=== PATIENT | male | born 1950 | race Caucasian/White ===

== ENCOUNTER 2017-02-03 15:58 | Emergency (ER) | payer OTHER ==
[2017-02-03 17:29] VITALS: BP 144/75
--- NOTE | 2017-02-03 18:04 | ED ---
Adult Trauma - HPI Summary HPI Summary: 66 yr old male with the complaint of right chest wall pain. The patient states he has pain 5/10, worse with movement. He fell getting out of the shower on wet floor and landed on the right side of his chest. He denies other injuries. Does not feel SOB. - History of Current Complaint Chief Complaint: UCChestPain Stated Complaint: S/P FALL- RT SIDE RIB AREA PAIN Time Seen by Provider: 02/03/17 17:38 - Allergy/Home Medications Allergies/Adverse Reactions: Allergies Allergy/AdvReac Type Severity Reaction Status Date / Time Carbamazepine [From Tegretol] Allergy Intermediate Rash Verified 02/03/17 17:29 Sulfa Drugs Allergy Intermediate Rash Verified 02/03/17 17:29 Home Medications: Home Medications Cephalexin CAP* [Keflex CAP*] 500 mg PO DAILY 02/03/17 [History Confirmed ] Naproxen Sodium [Naproxen Sodium 220 mg] 220 mg PO ONCE PRN 02/03/17 [History Confirmed 02/03/17] PMH/Surg Hx/FS Hx/Imm Hx Previously Healthy: Yes Cardiovascular History: Reports: Hx Hypertension - Cancer History Cancer Type, Location and Year: prostate ca 2005 - Surgical History Surgery Procedure, Year, and Place: prostate, appy. RIGHT FOOT SX--2010 Infectious Disease History: No Infectious Disease History: Denies: Traveled Outside the [place] in Last 30 Days - Social History Alcohol Use: None Substance Use Type: Reports: None Smoking Status (MU): Never Smoked Tobacco Have You Smoked in the Last Year: No Review of Systems Constitutional: Negative Positive: Other - chest wall pain after fall All Other Systems Reviewed And Are Negative: Yes Physical Exam Triage Information Reviewed: Yes Vital Signs On Initial Exam: Initial Vitals Temp Pulse Resp BP Pulse Ox 98.1 F 57 20 144/75 100 02/03/17 17:21 02/03/17 17:21 02/03/17 17:21 02/03/17 17:21 02/03/17 17:21 Vital Signs Reviewed: Yes Appearance: Positive: Well-Appearing, No Pain Distress Skin: Positive: Warm Head/Face: Positive: Normal Head/Face Inspection Eyes: Positive: EOMI ENT: Positive: Normal ENT inspection Neck: Positive: Nontender Respiratory/Lung Sounds: Positive: Clear to Auscultation, Breath Sounds Present , Other - tender over the right anterior chest wall. Cardiovascular: Positive: RRR. Negative: Murmur Abdomen Description: Positive: Nontender Musculoskeletal: Positive: Strength/ROM Intact Neurological: Positive: Sensory/Motor Intact, Alert, Oriented to Person Place, Time, CN Intact II-III - Marshall Coma Scale Best Eye Response: 4 - Spontaneous Best Motor Response: 6 - Obeys Commands Best Verbal Response: 5 - Oriented Diagnostics - Vital Signs Vital Signs Temp Pulse Resp BP Pulse Ox 02/03/17 17:21 98.1 F 57 20 144/75 100 - Laboratory Lab Statement: Any lab studies that have been ordered have been reviewed, and results considered in the medical decision making process. - Radiology chest Xray Interpretation: No Acute Changes Radiology Interpretation Completed By: Radiologist Adult Trauma Course/Dx - Course Course Of Treatment: 66 yr old male with chest wall pain after fall. DC home. Good condition. - Diagnoses Provider Diagnoses: Contusion, chest wall Discharge - Discharge Plan Condition: Good Disposition: HOME Patient Education Materials: Chest Wall Pain (ED) Referrals: Bernabe Cook DO [Primary Care Provider] -
--- NOTE | 2017-02-03 18:34 | RAD ---
INDICATION: RIGHT upper lateral aspect rib pain following injury this morning. COMPARISON: No relevant prior exams available on the [facility] [place] PACS for comparison. TECHNIQUE: Dual energy PA and routine lateral views of the chest were obtained. REPORT: Clear lungs and pleural spaces. Negative for pneumothorax. The heart, pulmonary vasculature, and mediastinal contours are unremarkable. No RIGHT rib fracture evident. Skin marker indicating the site of clinical concern noted at the level of the lateral segment of the eighth rib. IMPRESSION: No RIGHT rib fracture or acute intrathoracic process evident.
== END 2017-02-03 18:46 | disposition home or self-care (01) ==
LOC: UCCORT 15:58
DX: S20.211A Contusion of right front wall of thorax, initial encounter (principal); W01.198A Fall on same level from slipping, tripping and stumbling with subsequent striking against other object, initial encounter; Y93.F1 Activity, caregiving, bathing
CPT/HCPCS: 71020; 99211; G0463

== ENCOUNTER 2019-03-08 17:58 | Emergency (ER) | payer OTHER ==
[2019-03-08 18:17] VITALS: BP 172/85
--- NOTE | 2019-03-08 18:37 | UC ---
Skin Complaint HPI - HPI Summary HPI Summary: 69-year-old male who was stung by a bee to his right upper inner arm yesterday. He denies any difficulty breathing however there is some redness to the area. He denies any fever or chills - History of Current Complaint Chief Complaint: UCSkin Time Seen by Provider: 03/08/19 18:37 Stated Complaint: SKIN COMPLAINT Hx Obtained From: Patient Onset/Duration: Gradual Onset Skin Exposure Onset/Duration: Days Ago - The bee sting was yesterday the redness started developing today. Timing: Constant Onset Severity: Mild Current Severity: Mild Pain Intensity: 2 Location: Other - Right upper inner arm. Character: Pruritus, Redness, Raised Aggravating Factor(s): Nothing Alleviating Factor(s): Nothing Associated Signs & Symptoms: Positive: Negative - Allergy/Home Medications Allergies/Adverse Reactions: Allergies Allergy/AdvReac Type Severity Reaction Status Date / Time carbamazepine Allergy Intermediate Rash Verified 03/08/19 18:11 Sulfa (Sulfonamide Allergy Intermediate Rash Verified 03/08/19 18:11 Antibiotics) Home Medications: Home Medications Acetaminophen [Acetaminophen Extra Strength] 1,000 mg PO ONCE PRN 03/08/19 [ History Confirmed 03/08/19] Hydrocortisone Cream 1 applic TOPICAL ONCE PRN 03/08/19 [History Confirmed 03/08] Omeprazole 20 mg PO BID 03/08/19 [History Confirmed 03/08/19] Simvastatin [Zocor] 40 mg PO QPM 03/08/19 [History Confirmed 03/08/19] Topiramate 200 mg PO BID 03/08/19 [History Confirmed 03/08/19] lamoTRIgine [Lamotrigine] 200 mg PO SEE INSTRUCTIONS 03/08/19 [History Confirmed 03/08/19] PMH/Surg Hx/FS Hx/Imm Hx Previously Healthy: Yes Cardiovascular History: Hypertension Cancer History: Prostate Cancer - Surgical History Surgical History: Yes Surgery Procedure, Year, and Place: prostate, appy. RIGHT FOOT SX--2010 - Family History Known Family History: Positive: Non-Contributory - Social History Lives: With Family Alcohol Use: None Substance Use Type: None Smoking Status (MU): Never Smoked Tobacco Have You Smoked in the Last Year: No When Did the Patient Quit Smoking/Using Tobacco: Over 40 yrs - Immunization History Most Recent Influenza Vaccination: 2013 Most Recent Tetanus Shot: unknown Review of Systems All Other Systems Reviewed And Are Negative: Yes Skin: Positive: Rash - Redness to right upper inner arm. Is Patient Immunocompromised?: No Physical Exam Triage Information Reviewed: Yes Appearance: Well-Appearing, No Pain Distress, Well-Nourished Vital Signs: Initial Vital Signs Temp 98.6 F 03/08/19 18:12 Pulse 59 03/08/19 18:12 Resp 18 03/08/19 18:12 BP 172/85 03/08/19 18:12 Pulse Ox 96 03/08/19 18:12 Vital Signs Reviewed: Yes Musculoskeletal Exam: Normal Neurological Exam: Normal Psychological Exam: Normal Skin: Positive: Other - Patient has mild redness to the right upper inner arm measuring approximately 10 cm x 5 cm. Nontender on palpation. Course/Dx - Course Course Of Treatment: The patient is comfortable here with no difficulty breathing. I don't believe the redness on his arm is a cellulitis as compared to a normal skin reaction from a bee sting. He can take Benadryl as directed however he is to apply cold moist compresses or ice to the area on 20 minutes off 20 minutes intermittently today and tomorrow. Is to follow-up with his primary care provider for any worsening symptoms. He's go the emergency room for any difficulty breathing, wheezing. Patient is agreeable to this plan of action. - Diagnoses Provider Diagnosis: Insect sting Discharge ED - Sign-Out/Discharge Documenting (check all that apply): Patient Departure All imaging exams completed and their final reports reviewed: No Studies - Discharge Plan Condition: Good Disposition: HOME Patient Education Materials: Insect Bite or Sting (ED) Referrals: Bernabe Cook DO [Primary Care Provider] - Additional Instructions: Apply cold compresses or ice to the sore area on 20 minutes off 20 minutes. May take Benadryl 25 mg by mouth every 6 hours as needed for itching or redness. Definite follow-up with your primary care provider if worsening symptoms in 3 or 4 days. Go to the emergency room if you develop any fever, chills, increased redness to include more of your arm or difficulty breathing or wheezing. - Billing Disposition and Condition Condition: GOOD Disposition: Home
== END 2019-03-08 18:48 | disposition home or self-care (01) ==
LOC: UCCORT 17:58
DX: S40.861A Insect bite (nonvenomous) of right upper arm, initial encounter (principal); I10 Essential (primary) hypertension; Z88.8 Allergy status to other drugs, medicaments and biological substances; Z88.2 Allergy status to sulfonamides; Z85.46 Personal history of malignant neoplasm of prostate; W57.XXXA Bitten or stung by nonvenomous insect and other nonvenomous arthropods, initial encounter; Y92.9 Unspecified place or not applicable
CPT/HCPCS: 99211; G0463